=== PATIENT | female | born 1960 | race Caucasian/White ===

== ENCOUNTER 2016-04-16 19:16 | Emergency (ER) | payer OTHER ==
[~2016-04-16] VITALS: Ht 157.5 cm; Wt 50.0 kg
[2016-04-16 19:18] VITALS: BP 133/63; PULSE 76; RESP 15; TEMP 97.8; O2SAT 97
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
[2016-04-16] MEDS ORDERED: GABA600T PO (22:27)
[2016-04-16] MEDS ORDERED: BUPR150CR PO (22:27)
[2016-04-16] MEDS ORDERED: CYMB60CA PO (22:27)
[2016-04-16] MEDS ORDERED: TRAZ100T4 PO (22:27)
[2016-04-16] MEDS ORDERED: NAPR500T PO (22:29)
[2016-04-16] MEDS ORDERED: FLUT1SPR5 EACH NARE (22:29)
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
== END 2016-04-17 01:05 | disposition home or self-care (01) ==
LOC: NEPC 19:16
DX: S06.9X9A Unspecified intracranial injury with loss of consciousness of unspecified duration, initial encounter (principal); S16.1XXA Strain of muscle, fascia and tendon at neck level, initial encounter; S00.83XA Contusion of other part of head, initial encounter; V43.52XA Car driver injured in collision with other type car in traffic accident, initial encounter; Y92.410 Unspecified street and highway as the place of occurrence of the external cause
CPT/HCPCS: 70450; 70486; 72125; 99284; L0120